=== PATIENT | male | born 1960 | race Caucasian/White ===

== ENCOUNTER 2020-04-30 17:09 | Emergency (ER) | payer BC ==
--- NOTE | 2020-04-30 18:13 | EDM.PDOC ---
<Moe Garcia - Last Filed: 04/30/20 18:54> ED HPI GENERAL MEDICAL PROBLEM - General Chief Complaint: Respiratory Problem Stated Complaint: LEFT LUNG BOTHER HIM Time Seen by Provider: 04/30/20 17:58 Source of Information: Reports: Patient History Limitations: Reports: No Limitations - History of Present Illness INITIAL COMMENTS - FREE TEXT/NARRATIVE: This 59 yo male patient reports to the ED with left middle chest wall/lung pain. The patient reports he started to have pain about 6 days ago. The patient reports his pain is inside his left lung. The patient does not know of any recent injuries and has not been doing any abnormal lifting. 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 The patient reports he has been taking ibuprofen with some symptomatic relief. The patient actually went to the clinic, but was sent to the ED due to the late hour of the day (too late for additional testing at the clinic.) The patient states no pain to palpation of the outside of his chest. The patient reports increased pain with a deep breath and reduced pain when he lifts his arm up and takes a breath. Onset Date: 04/24/20 Duration: Day(s): (6), Constant Location: Reports: Chest (left mid chest) Quality: Reports: Ache, Sharp, Stabbing Severity: Moderate Improves with: Reports: None Worsens with: Reports: None Context: Reports: Other Left Upper Trunk Pain Score (Numeric/FACES): 5 - Related Data Allergies Allergy/AdvReac Type Severity Reaction Status Date / Time No Known Allergies Allergy Verified 08/30/18 11:03 Home Meds: Home Meds Benazepril HCl [Lotensin] 40 mg PO DAILY 08/30/18 [History] hydroCHLOROthiazide [Hydrochlorothiazide] 25 mg PO DAILY 08/30/18 [History] Ascorbate Calcium [Vitamin C] 500 mg PO DAILY 04/30/20 [History] Past Medical History HEENT History: Reports: None Cardiovascular History: Reports: Hypertension Respiratory History: Reports: None Gastrointestinal History: Reports: None Genitourinary History: Reports: None Musculoskeletal History: Reports: None Neurological History: Reports: None Psychiatric History: Reports: None Endocrine/Metabolic History: Reports: None Hematologic History: Reports: None Immunologic History: Reports: None Oncologic (Cancer) History: Reports: None Dermatologic History: Reports: None - Past Surgical History Head Surgeries/Procedures: Reports: None ED ROS GENERAL - Review of Systems Review Of Systems: Comprehensive ROS is negative, except as noted in HPI. ED EXAM, GENERAL - Physical Exam Exam: See Below Exam Limited By: No Limitations General Appearance: Alert, WD/WN, No Apparent Distress Eye Exam: Bilateral Eye: EOMI, Normal Inspection, PERRL Ears: Normal External Exam, Normal Canal, Hearing Grossly Normal, Normal TMs Nose: Normal Inspection, Normal Mucosa, No Blood Throat/Mouth: Normal Inspection, Normal Lips, Normal Teeth, Normal Gums, Normal Oropharynx, Normal Voice, No Airway Compromise Head: Atraumatic, Normocephalic Neck: Normal Inspection, Supple, Non-Tender, Full Range of Motion Respiratory/Chest: No Respiratory Distress, Lungs Clear, Normal Breath Sounds, No Accessory Muscle Use, Chest Non-Tender Cardiovascular: Normal Peripheral Pulses, Regular Rate, Rhythm, No Edema, No Gallop, No JVD, No Murmur, No Rub GI/Abdominal: Normal Bowel Sounds, Soft, Non-Tender, No Organomegaly, No Distention, No Abnormal Bruit, No Mass (Male) Exam: Deferred Rectal (Males) Exam: Deferred Back Exam: Normal Inspection, Full Range of Motion, NT Extremities: Normal Inspection, Normal Range of Motion, Non-Tender, Normal Capillary Refill, No Pedal Edema Neurological: Alert, Oriented, CN II-XII Intact, Normal Cognition, Normal Gait, Normal Reflexes, No Motor/Sensory Deficits Psychiatric: Normal Affect, Normal Mood Skin Exam: Warm, Dry, Intact, Normal Color, No Rash Lymphatic: No Adenopathy Departure - Departure Disposition: Against Medical Advice 07 Clinical Impression: Intermittent left-sided chest pain - Discharge Information Forms: ED Department Discharge Sepsis Event Note (ED) - Evaluation Sepsis Screening Result: No Definite Risk <Winter Vizcarra - Last Filed: 05/01/20 05:46> Course - Vital Signs Last Recorded V/S: Last Vital Signs Temp 98.8 F 04/30/20 18:09 Pulse 84 04/30/20 18:09 Resp 16 04/30/20 18:09 BP 145/96 H 04/30/20 18:09 Pulse Ox 97 04/30/20 18:09 - Orders/Labs/Meds Orders: Active Orders 24 hr Category Date Time Status EKG Documentation Completion [RC] STAT Care 04/30/20 18:10 Active Chest w Cont [CT] Urgent Exams 04/30/20 19:19 Ordered Labs: Laboratory Tests 04/30/20 04/30/20 04/30/20 Range/Units 18:31 18:31 18:31 WBC 5.9 (5.0-10.0) 10^3/uL RBC 4.71 (4.6-6.2) 10^6/uL Hgb 14.8 (14.0-18.0) g/dL Hct 42.2 (40.0-54.0) % MCV 89.6 (80-100) fL MCH 31.4 (27.0-34.0) pg MCHC 35.1 H (33.0-35.0) g/dL Plt Count 205 (150-450) 10^3/uL Neut % (Auto) 74.4 (42.2-75.2) % Lymph % (Auto) 11.1 L (20.5-50.1) % [place] % (Auto) 11.2 H (2-8) % Eos % (Auto) 3.1 H (1.0-3.0) % Baso % (Auto) 0.2 (0.0-1.0) % D-Dimer, Quantitative 781 H (0-400) ng/mL Sodium 134 L (136-145) mmol/L Potassium 4.4 (3.5-5.1) mmol/L Chloride 97 L (98-107) mmol/L Carbon Dioxide 31 (21-32) mmol/L Anion Gap 10.4 (7-13) mEq/L BUN 13 (7-18) mg/dL Creatinine 0.81 (0.70-1.30) mg/dL Est Cr Clr Drug Dosing 106.45 mL/min Estimated GFR (MDRD) > 60 BUN/Creatinine Ratio 16.0 (No establ ref range) Glucose 96 (74-99) mg/dL Calcium 8.8 (8.5-10.1) mg/dL Total Bilirubin 0.6 (0.2-1.0) mg/dL AST 23 (15-37) U/L ALT 38 (16-63) U/L Alkaline Phosphatase 89 (46-116) U/L Troponin I < 0.017 (0.000-0.056) ng/mL Total Protein 8.5 H (6.4-8.2) g/dL Albumin 4.0 (3.4-5.0) g/dL Globulin 4.5 Albumin/Globulin Ratio 0.9 Meds: Medications Discontinued Medications Generic Name Dose Route Start Last Admin Trade Name Freq PRN Reason Stop Dose Admin Lactated Ringer's 1,000 mls @ 999 mls/hr 04/30/20 18:36 Ringers, Lactated IV 04/30/20 19:36 .BOLUS ONE Ondansetron HCl 4 mg 04/30/20 18:36 Zofran IVPUSH 04/30/20 18:37 ONETIME ONE Departure - Departure Time of Disposition: 20:25 Condition: Undetermined Sepsis Event Note (ED) - Focused Exam Vital Signs: Vital Signs Temp Pulse Resp BP Pulse Ox 04/30/20 18:09 98.8 F 84 16 145/96 H 97 - My Orders Last 24 Hours: My Active Orders 04/30/20 19:19 Chest w Cont [CT] Urgent - Assessment/Plan Last 24 Hours: My Active Orders 04/30/20 19:19 Chest w Cont [CT] Urgent
[2020-04-30] MEDS ORDERED: Ondansetron 4 MG/2 ML SDV IVPUSH ONE (18:36)
[2020-04-30] MEDS ORDERED: Lactated Ringers 1,000 ML IV ONE (18:36)
[2020-04-30 19:02] LABS: ANION GAP 10.4 mEq/L (7-13); CHLORIDE,CL 97 mmol/L (98-107); SODIUM,NA 134 mmol/L (136-145)
--- NOTE | 2020-04-30 19:12 | CR ---
PROCEDURE INFORMATION: Exam: XR Chest, 2 Views Exam date and time: 04/30/2020 6:11 PM Age: 59 years old Clinical indication: Chest pain; Additional info: Left side chest pain TECHNIQUE: Imaging protocol: XR of the chest Views: 2 views. COMPARISON: No relevant prior studies available. FINDINGS: Lungs: Unremarkable. No consolidation. Pleural space: Unremarkable. No pleural effusion. No pneumothorax. Heart/Mediastinum: Unremarkable. No cardiomegaly. Bones/joints: Unremarkable. IMPRESSION: No acute findings.
== END 2020-04-30 20:25 | disposition left against medical advice (07) ==
LOC: DL.ED 17:09
DX: R07.89 Other chest pain (principal); I10 Essential (primary) hypertension; Z79.899 Other long term (current) drug therapy
CPT/HCPCS: 36415; 71046; 80053; 84484; 85025; 85379; 93005; 99283; 99285-25